=== PATIENT | female | born 2000 | race Two or more races ===

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

== ENCOUNTER 2022-05-19 03:28 | Emergency (ER) | payer OTHER ==
[~2022-05-19] VITALS: Ht 162.6 cm; Wt 80.7 kg
== END 2022-05-19 12:56 | disposition home or self-care (01) ==
LOC: ER 03:28
DX: R11.10 Vomiting, unspecified (principal)

== ENCOUNTER 2022-11-27 21:23 | Emergency (ER) | payer OTHER ==
[~2022-11-27] VITALS: Ht 162.6 cm; Wt 83.0 kg
[2022-11-28] MEDS ORDERED: ZOFRAN8 MG PO (01:19)
[2022-11-28] MEDS ORDERED: PEPCID40 MG PO (01:19)
[2022-11-28] MEDS ORDERED: CEPHALEXIN250 MG/5 M PO (01:19)
== END 2022-11-28 02:26 ==
LOC: ER 21:23
DX: N39.0 Urinary tract infection, site not specified (principal); R11.10 Vomiting, unspecified; Z20.822 Contact with and (suspected) exposure to COVID-19; M54.50 Low back pain, unspecified

== ENCOUNTER 2022-12-30 13:20 | Emergency (ER) | payer OTHER ==
[~2022-12-30] VITALS: Ht 160 cm; Wt 74.8 kg
[~2022-12-30 13:20] MED LIST: CEPHALEXIN250 MG/5 M PO; PEPCID40 MG PO; ZOFRAN8 MG PO
[2022-12-30] MEDS ORDERED: PEPCID AC20 MG PO (19:55)
[2022-12-30] MEDS ORDERED: ONDANSETRON ODT8 MG PO (19:55)
== END 2022-12-30 20:47 | disposition home or self-care (01) ==
LOC: ER 13:20
DX: K52.9 Noninfective gastroenteritis and colitis, unspecified (principal)

== ENCOUNTER 2023-08-30 14:21 | Emergency (ER) | payer OTHER ==
[~2023-08-30] VITALS: Ht 160 cm; Wt 88.9 kg
[~2023-08-30 14:21] MED LIST changes: +ONDANSETRON ODT8 MG PO; +PEPCID AC20 MG PO
[2023-08-30 20:17] LABS: HEMOGLOBIN 12.5 g/dL (12.0-15.00); MEAN CELL VOLUME 79.4 fL (80.00-100.00); MEAN CORPUSCULAR HEMOGLOBIN 26.8 pg (27.00-32.0); MEAN CORPUSCULAR HGB CONC 33.8 g/dl (32.0-36.0); PLATELET COUNT 297 K/uL (150-450); RED BLOOD COUNT 4.66 M/uL (4.00-6.00); RED CELL DISTRIBUTION WIDTH 13.5 % (11.5-14.5)
[2023-08-30 20:48] LABS: BILIRUBIN TOTAL 0.27 mg/dL (0.3-1.2); CALCIUM 9.3 mg/dL (8.5-10.1); CREATININE SERUM 0.71 mg/dL (0.55-1.02); GFR 102.01; GLOBULINA 4.4 G/DL (2.4-3.5); POTASSIUM 3.64 mEq/L (3.5-5.1); TOTAL PROTEIN 8.4 gm/dL (6.4-8.2)
[2023-08-30 21:13] LABS: PH,URINE 5.5 (5.0-8.0); URINE APPEARANCE Clear; URINE BILIRRUBIN Negative (NEGATIVE); URINE BLOOD Negative; URINE COLOR Yellow; URINE GLUCOSE Negative (NEGATIVE); URINE LEUKOCYTE Trace; URINE NITRATE Negative; URINE PROTEIN Negative (NEGATIVE); URINE UROBILINOGEN 0.2 E.U./dl
[2023-08-30 21:14] LABS: URINE BACTERIA 1349.4 uL (0.0-1933); URINE EPITHELIAL CELLS 56.4 uL (0.0-38.8); URINE RBC 4.1 uL (0.0-20.8); URINE WBC 48.8 uL (0.0-23.2)
== END 2023-08-30 22:01 | disposition home or self-care (01) ==
LOC: ER 14:21
PROVIDERS: General Practice
DX: K52.9 Noninfective gastroenteritis and colitis, unspecified (principal)

== ENCOUNTER 2023-10-29 21:43 | Emergency (ER) | payer OTHER ==
[~2023-10-29] VITALS: Ht 160 cm; Wt 78.0 kg
[2023-10-29] MEDS ORDERED: ACID REDUCER20 M1 (21:52)
[2023-10-30 01:58] LABS: HEMOGLOBIN 11.5 g/dL (12.0-15.00); MEAN CELL VOLUME 79.4 fL (80.00-100.00); MEAN CORPUSCULAR HEMOGLOBIN 26.2 pg (27.00-32.0); MEAN CORPUSCULAR HGB CONC 32.9 g/dl (32.0-36.0); PLATELET COUNT 250 K/uL (150-450); RED CELL DISTRIBUTION WIDTH 13.6 % (11.5-14.5)
[2023-10-30 03:46] LABS: URINE APPEARANCE Clear; URINE BILIRRUBIN Negative (NEGATIVE); URINE BLOOD Negative; URINE COLOR Yellow; URINE GLUCOSE Negative (NEGATIVE); URINE LEUKOCYTE Negative; URINE NITRATE Negative; URINE PROTEIN Negative (NEGATIVE)
[2023-10-30 03:50] LABS: URINE BACTERIA 1436.2 uL (0.0-1933); URINE RBC 5.7 uL (0.0-20.8); URINE WBC 20.7 uL (0.0-23.2)
[2023-10-30] MEDS ORDERED: DUI500 PO (04:16)
[2023-10-30] MEDS ORDERED: DOLOGESIC-DF 51 EACH PO (04:16)
== END 2023-10-30 04:22 ==
LOC: ER 21:44
PROVIDERS: General Practice
DX: R53.81 Other malaise (principal); J02.8 Acute pharyngitis due to other specified organisms; Z20.822 Contact with and (suspected) exposure to COVID-19

== ENCOUNTER 2024-08-22 05:22 | Emergency (ER) | payer OTHER ==
[~2024-08-22] VITALS: Ht 160 cm; Wt 70.3 kg
[~2024-08-22 05:22] MED LIST changes: +ACID REDUCER20 M1; +DOLOGESIC-DF 51 EACH PO; +DUI500 PO
[2024-08-22] MEDS ORDERED: KETOROLAC TROMETHAMINE 60 MG VIAL IM STA (06:26)
[2024-08-22] MEDS ORDERED: ORPHENADRINE CITRATE 30 MG/ML AMPUL IM STA (06:27)
[2024-08-22] MEDS ORDERED: NORFLEX100MG PO (08:24)
[2024-08-22] MEDS ORDERED: KETO10TA2 PO (08:24)
[2024-08-22 09:02] VITALS: BP 119/78; O2SAT 98
== END 2024-08-22 09:03 ==
LOC: ER 05:24
DX: M54.50 Low back pain, unspecified (principal)